=== PATIENT | female | born 1960 | race Caucasian/White ===

== ENCOUNTER → 2017-08-10 | Outpatient (REF) | payer OTHER ==
[~2017-08-10] MED LIST: AVAP300T; BABY81CH; BUSP15TA; EFFE150C; EFFE75CA75; FISH1000; NORV5TAB; THERGRAN; TOPI100T; Trilipix
== END ==
LOC: M SFHCLERA 18:52
PROVIDERS: ATTEND Physician Assistant
DX: N30.01 Acute cystitis with hematuria (principal)

== ENCOUNTER → 2017-08-10 | Outpatient (REF) | payer OTHER | LOC: M SFHCLUC 16:28 | PROVIDERS: ATTEND Physician Assistant | DX: N30.01 Acute cystitis with hematuria (principal) ==

== ENCOUNTER 2018-05-03 09:02 | Day surgery (SDC) | payer BC, OTHER ==
[2018-05-03] MEDS: NS 1,000 ML IV (10:00)
[2018-05-03] MEDS ORDERED: fentaNYL 100 MCG/2 ML INJECTION (J3010) As Ordered (11:20)
[2018-05-03] MEDS ORDERED: PROPOFOL 200 MG/20 ML VIAL As Ordered ×2 (11:30→11:31)
[2018-05-03] MEDS ORDERED: LIDOCAINE 2% INJ 100 MG/5 ML SDV (FOR ANES.) As Ordered (11:31)
[2018-05-03] MEDS ORDERED: ePHEDrine SULFATE 25 MG/5 ML(5MG/ML) SYRINGE As Ordered (11:50)
== END 2018-05-03 12:28 | disposition home or self-care (01) ==
LOC: M OPP 12:28
DX: Z12.11 Encounter for screening for malignant neoplasm of colon (principal); Z86.010 Personal history of colon polyps; Z80.0 Family history of malignant neoplasm of digestive organs; R15.9 Full incontinence of feces; K59.00 Constipation, unspecified; D12.2 Benign neoplasm of ascending colon; D12.3 Benign neoplasm of transverse colon; K62.1 Rectal polyp; K64.8 Other hemorrhoids; R12 Heartburn; K20.9 Esophagitis, unspecified; K29.70 Gastritis, unspecified, without bleeding; I10 Essential (primary) hypertension; E78.5 Hyperlipidemia, unspecified; E11.9 Type 2 diabetes mellitus without complications; R14.0 Abdominal distension (gaseous); F41.9 Anxiety disorder, unspecified; F32.9 Major depressive disorder, single episode, unspecified; G40.909 Epilepsy, unspecified, not intractable, without status epilepticus; G47.00 Insomnia, unspecified; Z86.73 Personal history of transient ischemic attack (TIA), and cerebral infarction without residual deficits; Z87.42 Personal history of other diseases of the female genital tract; Z87.891 Personal history of nicotine dependence; Z88.1 Allergy status to other antibiotic agents; Z88.8 Allergy status to other drugs, medicaments and biological substances; Z88.2 Allergy status to sulfonamides; Z79.82 Long term (current) use of aspirin; Z79.899 Other long term (current) drug therapy; Z79.84 Long term (current) use of oral hypoglycemic drugs; Z80.8 Family history of malignant neoplasm of other organs or systems; Z80.3 Family history of malignant neoplasm of breast
CPT/HCPCS: 45385

== ENCOUNTER → 2018-05-21 | Outpatient (CLI) | payer BC, OTHER ==
[2018-05-21 14:44] LABS: CREATININE FOR GFR 0.74 MG/DL (0.55-1.30); GLOMERULAR FILTRATION RATE > 60.0 (>51)
[2018-05-21 14:44] LABS: BLOOD UREA NITROGEN 12 MG/DL (7-18)
== END ==
LOC: M LAB 13:42
DX: K31.84 Gastroparesis (principal); K59.00 Constipation, unspecified; R68.81 Early satiety; R14.0 Abdominal distension (gaseous)
CPT/HCPCS: 82565

== ENCOUNTER → 2018-06-14 | Outpatient (CLI) | payer BC, OTHER ==
[~2018-06-14] MED LIST changes: -AVAP300T; -BABY81CH; -BUSP15TA; -EFFE150C; -EFFE75CA75; -FISH1000; +ISOVUE-370 76% 100ML VIAL (Q9967) As Ordered; -NORV5TAB; -THERGRAN; -TOPI100T; -Trilipix
[2018-06-14 15:32] LABS: CORTISOL PM 9.7 UG/DL (3.1-16.7)
[2018-06-19 00:06] LABS: METANEPHRINE PLASMA 28 pg/mL (0-62); NORMETANEPHRINE PLASMA 169 pg/mL (0-145)
== END ==
LOC: M RAD 14:27
DX: D44.11 Neoplasm of uncertain behavior of right adrenal gland (principal)
CPT/HCPCS: Q9967

== ENCOUNTER → 2018-06-16 | Outpatient (REF) | payer OTHER ==
[2018-06-21 08:59] LABS: METANEPHRINE TOTAL URINE 21 ug/L (Undefined); METANEPHRINE URINE 126 ug/24 hr (45-290); NORMETANEPHRINE TOTAL URINE 118 ug/L (Undefined); NORMETANEPHRINE URINE 708 ug/24 hr (82-500)
== END ==
LOC: M LAB REF 10:55
DX: D44.11 Neoplasm of uncertain behavior of right adrenal gland (principal)

== ENCOUNTER → 2018-07-29 | Outpatient (REF) | payer OTHER ==
[2018-07-29 17:15] LABS: APPEARANCE, URINE CLEAR (CLEAR); BACTERIA, URINE AUTO NEGATIVE (NEGATIVE); BILIRUBIN, URINE AUTO NEGATIVE (NEGATIVE); BLOOD, URINE BLOOD NEGATIVE (NEGATIVE); COLOR, URINE YELLOW (YELLOW); GLUCOSE, URINE (UA) AUTO 3+ mg/dL (NEGATIVE); KETONE, URINE AUTO NEGATIVE (NEGATIVE); LEUKOCYTE ESTERASE, URINE AUTO NEGATIVE (NEGATIVE); NITRITE, URINE AUTO NEGATIVE (NEGATIVE); PROTEIN, URINE AUTO NEGATIVE (NEGATIVE); RBC, URINE AUTO 1 /HPF (0-3); SPECIFIC GRAVITY URINE AUTO 1.014 (1.002-1.035); SQUAMOUS EPITHELIAL CELL UR AU 0 /HPF (0-6); UROBILINOGEN, URINE AUTO 0.2 mg/dL (0.0-2.0); WBC, URINE AUTO 1 /HPF (0-3)
== END ==
LOC: M LAB REF 16:56
DX: Z01.818 Encounter for other preprocedural examination (principal)
CPT/HCPCS: 81001

== ENCOUNTER → 2018-08-18 | Outpatient (CLI) | payer BC, OTHER | LOC: M LAB 11:13 | DX: G43.909 Migraine, unspecified, not intractable, without status migrainosus (principal); R56.9 Unspecified convulsions | CPT/HCPCS: 36415 ==

== ENCOUNTER → 2019-09-14 | Outpatient (REF) | payer MEDICARE, OTHER ==
[~2019-09-14] MED LIST changes: +ATOR1TAB19 PO; +AVAP300T PO; +BABY81CH PO; +BUSP15TA PO; +BUSP30TA PO; +CLON1TAB8 PO; +EFFE150C PO; +EFFE75CA75 PO; +FISH1000; +INVO100T PO; +IRBE300T12 PO; -ISOVUE-370 76% 100ML VIAL (Q9967) As Ordered; +K-TA10TA2 PO; +LAVAZA PO; +LOVA1CAP17 PO; +METF10004 PO; +NORV5TAB PO; +RISP1TAB3 PO; +SERT-138 PO; +THERGRAN PO; +TOPI100T; +Trilipix; +VITA2000 PO; +VITA200015 PO; +VITA500T PO; +ZOLP10TA2 PO; +ZONI100C2 PO
== END ==
LOC: M LABNEURO 14:27
PROVIDERS: ATTEND Physician Assistant Medical
DX: G43.909 Migraine, unspecified, not intractable, without status migrainosus (principal)

== ENCOUNTER → 2020-08-02 | Outpatient (CLI) | payer MEDICARE, OTHER ==
[~2020-08-02] MED LIST changes: +VITA-243 PO; -VITA500T PO; +ZONI100C17 PO; -ZONI100C2 PO
== END ==
LOC: M WUC 11:04
PROVIDERS: ATTEND Physician Assistant Medical
DX: G43.909 Migraine, unspecified, not intractable, without status migrainosus (principal)

== ENCOUNTER → 2021-04-11 | Outpatient (REF) | payer MEDICARE, OTHER ==
[~2021-04-11] MED LIST changes: +RISP-8 PO; -RISP1TAB3 PO
[2021-04-12 10:49] LABS: CREATININE, URINE < 13.0 MG/DL; MALB URINE SIEMENS 10.1 MG/L
== END ==
LOC: M LAB REF 09:06
PROVIDERS: ATTEND Internal Medicine Endocrinology, Diabetes & Metabolism
DX: E11.65 Type 2 diabetes mellitus with hyperglycemia (principal)

== ENCOUNTER → 2021-04-17 | Outpatient (REF) | payer MEDICARE, OTHER | LOC: M LAB REF 16:25 | PROVIDERS: ATTEND Internal Medicine | DX: E11.65 Type 2 diabetes mellitus with hyperglycemia (principal); D72.829 Elevated white blood cell count, unspecified ==

== ENCOUNTER → 2021-07-22 | Outpatient (CLI) | payer MEDICARE, OTHER ==
[~2021-07-22] MED LIST changes: +AMLO1TAB24; +CALC250T PO; +D31000TA2 PO; +ECOT81TA5 PO; +ESTR625TA PO; +JARD1TAB3 PO; +LANTINJ4 SC; +LITH300C; +METF-838; +OMEP-218; +PROBCAP17 PO; +VENL37TA; +VICT18IN2; +VITA500C19 PO; +VITMTA PO; +ZOLO100T PO
== END ==
LOC: M LABSMTC 10:44
PROVIDERS: ATTEND Anesthesiology
DX: Z01.812 Encounter for preprocedural laboratory examination (principal); Z20.822 Contact with and (suspected) exposure to COVID-19

== ENCOUNTER 2021-07-26 07:09 | Day surgery (SDC) | payer MEDICARE, BC, OTHER ==
[~2021-07-26] VITALS: Ht 160 cm; Wt 76.2 kg
[2021-07-26] MEDS ORDERED: propofoL 200 MG/20 ML VIAL As Ordered ONE (07:17)
[2021-07-26] MEDS ORDERED: LIDOCAINE 2% 100MG/5ML SDV (FOR ANES.) As Ordered ONE (07:17)
--- NOTE | 2021-07-26 08:31 | ROOR ---
Patient Name: Breanne Hu Procedure Date: 07/26/2021 7:55 AM Date of : 1960 Age: 60 Room: [facility], [facility]IN [facility] Gender: Female Note Status: Finalized Procedure: Colonoscopy Indications: High risk colon cancer surveillance: Personal history of colonic polyps Providers: Santi Stiles MD Referring MD: Tegan RAE MD Requesting Provider: Medicines: Monitored Anesthesia Care Complications: No immediate complications. Procedure: Pre-Anesthesia Assessment: - The heart rate, respiratory rate, oxygen saturations, blood pressure, adequacy of pulmonary ventilation, and response to care were monitored throughout the procedure. The Colonoscope was introduced through the anus and advanced to the cecum, identified by appendiceal orifice and ileocecal valve. The colonoscopy was performed without difficulty. The patient tolerated the procedure well. The quality of the bowel preparation was excellent. The bowel preparation used was Miralax via split dose instruction. The bowel preparation used was magnesium citrate via split dose instruction. Findings: The perianal and digital rectal examinations were normal. Four sessile polyps were found in the splenic flexure, hepatic flexure and ascending colon. The polyps were 4 to 5 mm in size. These polyps were removed with a cold snare. Resection and retrieval were complete. The colon (entire examined portion) was mildly redundant. The exam was otherwise normal throughout the examined colon. Impression: - Four 4 to 5 mm polyps at the splenic flexure, at the hepatic flexure and in the ascending colon, removed with a cold snare. Resected and retrieved. - The exam was otherwise normal to the cecum. Recommendation: - Repeat colonoscopy in 3 years for surveillance. - (several previous colonoscopies with suboptimal preps. Todays prep was very good. Suggest repeat same prep (Mag citrate,miralax2.0) for future colonoscopies) Procedure Code(s): --- Professional --- 79961, Colonoscopy, flexible; with removal of tumor(s), polyp(s), or other lesion(s) by snare technique Diagnosis Code(s): --- Professional --- K63.5, Polyp of colon Z86.010, Personal history of colonic polyps CPT copyright 2019 [employer]. All rights reserved. The codes documented in this report are preliminary and upon corrugator machine operator review may be revised to meet current compliance requirements. Santi Stiles MD Santi Stiles MD 07/26/2021 8:31:40 AM Electronically signed by Santi Stiles MD Number of Addenda: 0 Note Initiated On: 07/26/2021 7:55 AM Estimated Blood Loss: Estimated blood loss: none.
[2021-07-26 08:45] VITALS: BP 119/61
== END 2021-07-26 08:59 | disposition home or self-care (01) ==
LOC: M OPP 07:09
PROVIDERS: ATTEND Internal Medicine Gastroenterology
DX: Z12.11 Encounter for screening for malignant neoplasm of colon (principal); Z86.010 Personal history of colon polyps; Z80.0 Family history of malignant neoplasm of digestive organs; D12.3 Benign neoplasm of transverse colon; Z79.82 Long term (current) use of aspirin; Z79.899 Other long term (current) drug therapy; Z80.51 Family history of malignant neoplasm of kidney; F17.210 Nicotine dependence, cigarettes, uncomplicated

== ENCOUNTER → 2021-08-01 | Outpatient (REF) | payer MEDICARE, BC, OTHER | LOC: M LAB REF 15:56 | PROVIDERS: ATTEND Internal Medicine | DX: G40.909 Epilepsy, unspecified, not intractable, without status epilepticus (principal) ==

== ENCOUNTER → 2024-08-09 | Outpatient (REF) | payer MEDICARE, BC, OTHER ==
[~2024-08-09] MED LIST changes: -D31000TA2 PO; -K-TA10TA2 PO; +OMEP-173; -OMEP-218; +POTA-165 PO; +RISP-105 PO; -RISP-8 PO; +VITA100093 PO; -ZONI100C17 PO; +ZONI100C67 PO
== END ==
LOC: M LAB REF 16:40
PROVIDERS: ATTEND Internal Medicine
DX: M10.9 Gout, unspecified (principal)

== ENCOUNTER 2024-09-08 08:39 | Day surgery (SDC) | payer MEDICARE, BC ==
[~2024-09-08] VITALS: Ht 160 cm; Wt 72.6 kg
[~2024-09-08 08:39] MED LIST changes: +CALC-190 PO; -LITH300C; +LITH300C PO; +LOSA100T46 PO; +NS 250 ML IV ONE; -OMEP-173; +OMEP-173 PO; +THERTAB52 PO; +TIRZ2.5P SC; +TOUJ300I2 SC; -VITA500C19 PO; +VITA500C22 PO
[2024-09-08 11:22] VITALS: TEMP 98.1
[2024-09-08 11:38] VITALS: BP 124/65; O2SAT 97
== END 2024-09-08 11:38 | disposition home or self-care (01) ==
LOC: M OPP 08:39
PROVIDERS: ATTEND Internal Medicine Gastroenterology
DX: Z12.11 Encounter for screening for malignant neoplasm of colon (principal); K63.5 Polyp of colon; K57.30 Diverticulosis of large intestine without perforation or abscess without bleeding; K64.8 Other hemorrhoids; Z86.0100 Personal history of colon polyps, unspecified; K21.9 Gastro-esophageal reflux disease without esophagitis; R00.1 Bradycardia, unspecified; E11.9 Type 2 diabetes mellitus without complications; I10 Essential (primary) hypertension; E78.00 Pure hypercholesterolemia, unspecified; Z95.0 Presence of cardiac pacemaker; F17.210 Nicotine dependence, cigarettes, uncomplicated; Z79.899 Other long term (current) drug therapy; Z79.82 Long term (current) use of aspirin; Z79.84 Long term (current) use of oral hypoglycemic drugs; Z79.85 Long-term (current) use of injectable non-insulin antidiabetic drugs; E89.6 Postprocedural adrenocortical (-medullary) hypofunction; Z90.710 Acquired absence of both cervix and uterus; Z88.2 Allergy status to sulfonamides

== ENCOUNTER → 2024-10-13 | Outpatient (REF) | payer MEDICARE, BC ==
[~2024-10-13] MED LIST changes: -NS 250 ML IV ONE
[2024-10-13 18:46] LABS: LITHIUM LEVEL 0.7 MMOL/L (1.0-1.20); PHOSPHORUS LEVEL 3.3 MG/DL (2.4-5.1)
[2024-10-13 18:53] LABS: THYROXINE (T4) 6.1 UG/DL (4.5-10.9)
[2024-10-14 12:54] LABS: FREE T3 2.8 PG/ML (2.3-4.2)
== END ==
LOC: M LAB REF 16:56
PROVIDERS: ATTEND Internal Medicine
DX: Z51.81 Encounter for therapeutic drug level monitoring (principal); Z79.899 Other long term (current) drug therapy